=== PATIENT | female | born 1950 | race Caucasian/White ===

== ENCOUNTER → 2017-04-18 | Outpatient (CLI) | payer MEDICARE, BC ==
[2017-04-18 19:17] LABS: Basophils % (A) 1 %; CH 29.3; Eosinophils # (A) 0.1 k/uL (0-0.7); Eosinophils % (A) 3 %; HCT 38.6 % (34.0-46.0); HDW 2.41; HGB 12.6 gm/dL (11.4-16.0); Luc # (Auto) 0.05; Luc % (Auto) 2; Lymphocytes # (A) 1.3 k/uL (1.0-4.8); Lymphocytes % (A) 40 %; MCH 29.2 pg (25.0-35.0); MCHC 32.7 g/dL (31.0-37.0); MCV 89.3 fL (80.0-100.0); Mean Platelet Volume 7.1; Monocytes # (A) 0.2 k/uL (0-1.0); Monocytes % (A) 6 %; Neutrophils # (A) 1.5 k/uL (1.3-7.7); Neutrophils % (A) 49 %; RBC 4.32 m/uL (3.80-5.40); RDW 13.7 % (11.5-15.5); WBC 3.2 k/uL (3.8-10.6); WBC (Perox) 3.19
[2017-04-18 19:28] LABS: ALT 27 U/L (9-52); AST 32 U/L (14-36); Alkaline Phosphatase 45 U/L (38-126); Anion Gap 11 mmol/L; Blood Urea Nitrogen 17 mg/dL (7-17); Calcium 9.3 mg/dL (8.4-10.2); Carbon Dioxide 23 mmol/L (22-30); Chloride 108 mmol/L (98-107); Cholesterol 207 mg/dL (<200); Glucose 88 mg/dL (74-99); HDL Cholesterol 97 mg/dL (40-60); Non-African American GFR(MDRD) >60 (>60 ml/min/1.73 sqM); Potassium 4.5 mmol/L (3.5-5.1); Sodium 142 mmol/L (137-145); Total Bilirubin 0.4 mg/dL (0.2-1.3); Total Protein 6.7 g/dL (6.3-8.2); Triglycerides 106 mg/dL (<150)
== END | disposition home or self-care (01) ==
LOC: MMGSC 11:55
PROVIDERS: ATTEND Family Medicine
DX: D72.819 Decreased white blood cell count, unspecified (principal); R74.0 Nonspecific elevation of levels of transaminase and lactic acid dehydrogenase [LDH]
CPT/HCPCS: 36415; 80053; 80061; 84439; 84443; 85025; 99213

== ENCOUNTER 2018-09-11 21:40 | Emergency (ER) | payer MEDICARE, BC ==
[2018-09-11 21:53] VITALS: BP 148/82; PULSE 76; RESP 16; TEMP 97.9
[2018-09-11] MEDS ORDERED: HYDROcodone/APAP 5-325MG 1 EACH TAB PO STA (22:58)
--- NOTE | 2018-09-11 23:25 | XR ---
EXAMINATION TYPE: XR knee complete RT DATE OF EXAM: 09/11/2018 COMPARISON: NONE HISTORY: Fall. Pain. TECHNIQUE: 3 views FINDINGS: There is knee joint effusion. There is nondisplaced comminuted fracture of the patella. The re is no dislocation. Joint spaces are fairly normal. Femur and tibia and fibula appear intact. IMPRESSION: Comminuted patella fracture with knee joint effusion.
--- NOTE | 2018-09-11 23:43 | ED ---
Lower Extremity Injury HPI - General Source: patient, family Mode of arrival: wheelchair Limitations: no limitations <Kelsey Morris - Last Filed: 09/12/18 04:48> <Val Harvey - Last Filed: 09/12/18 06:23> - General Chief Complaint: Extremity Injury, Lower Stated Complaint: fall, rt knee pain Time Seen by Provider: 09/11/18 22:08 - History of Present Illness Initial Comments: 68-year-old female patient presents to the emergency department today for complaints of right knee pain. The patient states that around 6 PM she was going into the garage carrying something when she tripped and fell forward landing on her knees. Patient states that she is also having some mild low back pain and some pain to the left knee but the right knee is the most severe. Patient states she is unable to bear weight on the right leg. States that she has pain and swelling surrounding the knee. She does report painful range of motion but with denies any limitation. She denies any numbness or tingling to the leg. She denies hitting her head or losing consciousness with the fall. She denies any pain radiation from her back down her legs. Denies any saddle anesthesia or loss of bowel or bladder control. Denies striking her back on anything during the fall. States she did take Tylenol and Motrin shortly after the fall occurred. Patient denies any headache, neck pain, chest pain, shortness of breath, dizziness, weakness, abdominal pain, nausea, vomiting, or difficulties with bowel movements or urination. (Kelsey Morris) - Related Data Previous Rx's Medication Instructions Recorded Hydrocodone/Acetaminophen [[place] 1 tab PO Q6HR PRN #12 tab 09/11/18 5-325] Allergies Allergy/AdvReac Type Severity Reaction Status Date / Time No Known Allergies Allergy Verified 09/11/18 23:40 Review of Systems ROS Other: All systems not noted in ROS Statement are negative. <Kelsey Morris - Last Filed: 09/12/18 04:48> ROS Other: All systems not noted in ROS Statement are negative. <Val Harvey - Last Filed: 09/12/18 06:23> ROS Statement: Those systems with pertinent positive or pertinent negative responses have been documented in the HPI. Past Medical History Past Medical History: No Reported History History of Any Multi-Drug Resistant Organisms: None Reported Past Surgical History: Orthopedic Surgery Additional Past Surgical History / Comment(s): colon surgery Smoking Status: Never smoker Past Alcohol Use History: Unable to Obtain Past Drug Use History: None Reported <NohemyleticiaKelsey - Last Filed: 09/12/18 04:48> General Exam Limitations: no limitations General appearance: alert, in no apparent distress, other (This is a well- developed, well-nourished adult female patient in no acute distress. Vital signs upon presentation are temperature 97.9F, pulse 76, respirations 16, blood pressure 148/82, pulse ox 99% on room air.) Eye exam: Present: normal appearance, PERRL, EOMI. Absent: scleral icterus, conjunctival injection, periorbital swelling ENT exam: Present: normal exam, normal oropharynx, mucous membranes moist Neck exam: Present: normal inspection, full ROM, other (Nontender, no step-off, no deformity to firm midline palpation of the posterior cervical spine. Full range of motion without pain or limitation.). Absent: tenderness, meningismus, lymphadenopathy Respiratory exam: Present: normal lung sounds bilaterally. Absent: respiratory distress, wheezes, rales, rhonchi, stridor Cardiovascular Exam: Present: regular rate, normal rhythm, normal heart sounds. Absent: systolic murmur, diastolic murmur, rubs, gallop, clicks GI/Abdominal exam: Present: soft, normal bowel sounds. Absent: distended, tenderness, guarding, rebound, rigid Extremities exam: Present: full ROM (Patient has full range of motion to the right knee with full extension and flexion. Full range of motion to the left knee with full flexion and extension.), tenderness (Tenderness over the anterior aspect of the right knee), normal capillary refill, other (Patient has swelling surrounding the right knee. Ecchymosis over the anterior knee bilaterally. Skin is otherwise pink, warm, and dry. Cap refills less than 3 seconds. Pedal pulses 2+ and equal bilaterally.). Absent: normal inspection, pedal edema, calf tenderness Back exam: Present: normal inspection, other. Absent: vertebral tenderness Neurological exam: Present: alert, oriented X3, CN II-XII intact Psychiatric exam: Present: normal affect, normal mood Skin exam: Present: warm, dry, intact, normal color. Absent: rash <Bantle,Kelsey M - Last Filed: 09/12/18 04:48> Vital Signs 09/11/18 21:48 Temperature 97.9 F Pulse Rate 76 Respiratory 16 Rate Blood Pressure 148/82 O2 Sat by Pulse 99 Oximetry Medical Decision Making - Radiology Data Radiology results: report reviewed, image reviewed <Kelsey Morris - Last Filed: 09/12/18 04:48> <Val Harvey - Last Filed: 09/12/18 06:23> - Medical Decision Making 68-year-old female patient presents to emergency department today with chief complaint of right knee pain and discomfort. Patient also complaining of some mild left knee discomfort and lower back pain. Physical examination did reveal swelling and tenderness to the right anterior knee. Patient also had some mild ecchymosis in swelling to the left knee. Patient able to bear weight on the left knee, states she does not feel that it is broken. Patient states that she twisted her back during the fall. Denies striking her back on anything for did not perform x-rays of this. X-ray of the right knee did reveal comminuted patellar fracture. Knee joint effusion. Patient is neurovascularly intact. She is placed in a knee immobilizer. Given prescription for crutches. She is instructed to remain nonweightbearing until further direction by orthopedic physician. She is instructed to follow-up with orthopedics for recheck as soon as possible. She'll be given prescription for pain management. She is instructed to rest, ice, elevate the knee. Return parameters discussed in detail. She verbalizes understanding and agrees with this plan. (Kelsey Morris) I was available for consultation in the emergency department. The history and physical exam were done by the midlevel provider. I was consulted for this patient's care. I reviewed the case with the midlevel provider and based on their presentation of the patient, I agree with the assessment, medical decision making and plan of care as documented. (Val Harvey) - Radiology Data 3 views of the right knee are obtained. There is knee joint effusion. There is nondisplaced comminuted fracture of the patella. There is no dislocation. Joint spaces are fairly normal. Femur and tibia and fibula appear intact. Impression by Dr. Arevalo shows comminuted patellar fracture with a joint effusion. (Kelsey Morris) Disposition Is patient prescribed a controlled substance at d/c from ED?: Yes When asked, does pt state using other controlled substances?: No If prescribed controlled substance>3 days was MAPS reviewed?: Prescribed <3 Days If opioid is for acute pain is fill amount 7 days or less?: Yes If Rx opioid, was Start Talking consent form obtained?: Yes Time of Disposition: 23:42 <Kelsey Morris - Last Filed: 09/12/18 04:48> <Val Harvey - Last Filed: 09/12/18 06:23> Clinical Impression: Comminuted fracture of right patella Disposition: HOME SELF-CARE Condition: Good Instructions: Patellar Fracture (ED) Additional Instructions: Leave knee immobilizer in place until follow-up with the land acquisition specialist. He may open to apply ice to the knee. Use crutches. Follow-up with orthopedic for recheck as soon as possible. Return here immediately for any new , worsening, or concerning symptoms Prescriptions: Hydrocodone/Acetaminophen [[place] 5-325] 1 tab PO Q6HR PRN #12 tab PRN Reason: Pain Referrals: Ashley Estrada MD [Primary Care Provider] - 1-2 days Riley Cali MD [Medical Doctor] - 1-2 days
== END 2018-09-12 00:03 | disposition home or self-care (01) ==
LOC: EC 21:40
DX: S82.044A Nondisplaced comminuted fracture of right patella, initial encounter for closed fracture (principal); S80.02XA Contusion of left knee, initial encounter; M54.5 Low back pain; W01.0XXA Fall on same level from slipping, tripping and stumbling without subsequent striking against object, initial encounter; Y93.89 Activity, other specified; Y92.59 Other trade areas as the place of occurrence of the external cause
CPT/HCPCS: 99283

== ENCOUNTER → 2021-10-17 | Outpatient (CLI) | payer MEDICARE, BC ==
[~2021-10-17] MED LIST: DENOSUMAB 60 MG/ML 1 ML SYRINGE SQ NR
[2021-10-17 11:25] VITALS: BP 154/84; PULSE 74; RESP 16; TEMP 98
== END ==
LOC: PROCWHC3 10:36
PROVIDERS: ATTEND Internal Medicine Endocrinology, Diabetes & Metabolism
DX: M81.0 Age-related osteoporosis without current pathological fracture (principal)
CPT/HCPCS: 96372; J0897

== ENCOUNTER → 2021-12-06 | Outpatient (CLI) | payer MEDICARE, BC ==
--- NOTE | 2021-12-10 10:53 | MM ---
Reason for exam: screening (asymptomatic). Last mammogram was performed 6 years and 11 months ago. History: Patient is postmenopausal. Physical Findings: A clinical breast exam by your physician is recommended on an annual basis and results should be correlated with mammographic findings. MG 3D Screening Mammo W/Cad Bilateral CC and MLO view(s) were taken. Prior study comparison: January 18, 2015, left breast MG work up mamm w CAD LT. January 12, 2015, bilateral MG screening mammo w CAD. There are scattered fibroglandular densities. Finding #1: There is a 8 mm obscured round mass located 4 cm from the nipple in the outer quadrant, anterior middle position of the right breast. Finding #2: There are typically benign vascular calcifications in both breasts. ASSESSMENT: Incomplete: need additional imaging evaluation, BI-RAD 0 RECOMMENDATION: Ultrasound of the right breast. [facility] will attempt to contact patient to return for ultrasound.
== END | disposition home or self-care (01) ==
LOC: RADMAMWWP 11:37
PROVIDERS: ATTEND Family Medicine
DX: Z12.31 Encounter for screening mammogram for malignant neoplasm of breast (principal); Z78.0 Asymptomatic menopausal state
CPT/HCPCS: 77063; 77067

== ENCOUNTER → 2021-12-18 | Outpatient (CLI) | payer MEDICARE, BC ==
--- NOTE | 2021-12-18 14:24 | USB ---
Reason for exam: additional evaluation requested from abnormal screening. History: Patient is postmenopausal. Physical Findings: Nurse did not find any significant physical abnormalities on exam. US Breast Workup Limited RT Right limited breast ultrasound including focal area of concern, retroareolar and axilla demonstrates a 0.7 x 0.5 x 0.6cm benign cyst at 9 o'clock, likely mammographic correlate. 6 month follow up recommended. Scanned 7-11 o'clock. These results were verbally communicated with the patient and result sheet given to the patient on 12/18/21. ASSESSMENT: Probably benign, BI-RAD 3 RECOMMENDATION: Follow-up diagnostic mammogram of the right breast in 6 months.
== END | disposition home or self-care (01) ==
LOC: RADUSWWP 13:13
PROVIDERS: ATTEND Family Medicine
DX: R92.8 Other abnormal and inconclusive findings on diagnostic imaging of breast (principal); Z78.0 Asymptomatic menopausal state

== ENCOUNTER → 2022-05-06 | Outpatient (CLI) | payer MEDICARE, BC ==
[2022-05-06 11:22] VITALS: BP 159/77; PULSE 72; RESP 16; TEMP 97.5
== END ==
LOC: PROCWHC3 11:13
PROVIDERS: ATTEND Internal Medicine Endocrinology, Diabetes & Metabolism
DX: M81.0 Age-related osteoporosis without current pathological fracture (principal)
CPT/HCPCS: 96372; J0897

== ENCOUNTER → 2022-06-18 | Outpatient (CLI) | payer MEDICARE, BC ==
--- NOTE | 2022-06-18 13:28 | MM ---
Reason for Exam: Follow-up at short interval from prior study. Last screening mammogram was performed 6 month(s) ago. Patient History: Menarche at age 11. First Full-Term at age 20. Postmenopausal. Risk Values: Claudia 5 year model risk: 1.6%. NCI Lifetime model risk: 3.9%. Prior Study Comparison: 01/12/2015 Bilateral Screening Mammogram, [facility]. 01/18/2015 Left Diagnostic Mammogram, [facility]. 12/06/2021 Bilateral Screening Mammogram, [facility]. Tissue Density: Right: The breast tissue is heterogeneously dense. This may lower the sensitivity of mammography. Findings: Analyzed By CAD. Stable chronic nodularity and benign calcifications on the right. Findings are stable. Overall Assessment: Benign, BI-RAD 2 Management: Screening Mammogram of both breasts in 6 months. A clinical breast exam by your physician is recommended on an annual basis and results should be correlated with mammographic findings. This exam should not preclude additional follow-up of suspicious palpable abnormalities. Results were given to the patient verbally at the time of exam. Electronically signed and approved by: Eldon Choudhury M.D. Radiologis
== END | disposition home or self-care (01) ==
LOC: RADMAMWWP 12:55
PROVIDERS: ATTEND Obstetrics & Gynecology
DX: R92.8 Other abnormal and inconclusive findings on diagnostic imaging of breast (principal); R92.1 Mammographic calcification found on diagnostic imaging of breast; Z78.0 Asymptomatic menopausal state
CPT/HCPCS: 77065; G0279; 77061

== ENCOUNTER → 2023-09-19 | Outpatient (CLI) | payer MEDICARE, BC ==
--- NOTE | 2023-09-19 12:52 | BD ---
EXAMINATION TYPE: Axial Bone Density DATE OF EXAM: 09/19/2023 CLINICAL HISTORY: 73 years old Female. ICD-10 CODE: M81.0 AGE RELATED OSTEOPOROSIS Height: 5 ft 2 1/2 in Weight: 150 FRAX RISK QUESTIONS: Alcohol (3 or more units per day): no Family History (Parent hip fracture): no Glucocorticoids (More than 3mos): no (Ex: prednisone, prednisolone, methylprednisolone, dexamethasone, and hydrocortisone). History of Fracture in Adulthood: yes Secondary Osteoporosis: 1. Type 1 Diabetes: no 2. Hyperthyroidism: no 3. Menopause before 45: yes 4. Malnutrition: no 5. Chronic liver disease: no Rheumatoid Arthritis: no Current Tobacco Use: no RISK FACTORS HISTORY OF: Surgery to Spine/Hip(right/left)/Wrist (right/left): no Family History of Osteoporosis: no Active: yes Diet low in dairy products/other sources of calcium: no Postmenopausal woman: yes Take estrogen and/or progesterone medications: no Lost more than 2 inches in height since high school: no Frequent falls: no Poor Health: good Hyperparathyroidism: no Adrenal Insufficiency: no MEDICATIONS: Thyroid Medications: yes Which medication: synthroid How Lon year Additional Medications: prolia x 7 years synthroid Additional History: EXAM MEASUREMENTS: Bone mineral densitometry was performed using the TrueView System. Bone mineral density as measured about the Lumbar spine is: ----- L1-L4(G/cm2): 1.189 T Score Values are as follows: ----- L1: -0.7 ----- L2: -0.1 ----- L3: 0.1 ----- L4: 0.8 ----- L1-L4: 0.1 Z Score Values are as follows: ----- L1: 0.9 ----- L2: 1.6 ----- L3: 1.7 ----- L4: 2.4 ----- L1-L4: 1.7 Bone mineral density has: increased 21.6 % since study of: 2014 Bone mineral density about the R hip (g/cm2): 0.611 Bone mineral density about the L hip (g/cm2): 0.659 T Score values are as follows: -----R Neck: -3.1 -----L Neck: -2.7 -----R Total: -2.5 -----L Total: -2.0 Z Score values are as follows: -----R Neck: -1.3 -----L Neck: -0.9 -----R Total: -0.9 -----L Total: -0.4 Bone mineral density has: increased 9.9 % since study of: 2014 FRAX%s: The graph provided illustrates a 21.8 % chance for a major osteoporotic fx and a 8.5 % chance for the hips probability for fx in 10 years time. IMPRESSION: Osteoporosis (T Score less than -2.5). There is increased fracture risk and therapy is usually indicated based on age. Re-Screen 1-2 years. NOTE: T-SCORE=SD OF THE YOUNG ADULT MEAN.
== END | disposition home or self-care (01) ==
LOC: RADBDWWP 12:03
PROVIDERS: ATTEND Internal Medicine Endocrinology, Diabetes & Metabolism
DX: M81.0 Age-related osteoporosis without current pathological fracture (principal); Z78.0 Asymptomatic menopausal state
CPT/HCPCS: 77080

== ENCOUNTER → 2023-11-05 | Outpatient (CLI) | payer MEDICARE, BC ==
[2023-11-05 12:01] LABS: African American GFR (CKD) >90 (>60 ml/min/1.73 sqM); Blood Urea Nitrogen 13 mg/dL (7-17); Non-African American GFR(CKD) 84 (>60 ml/min/1.73 sqM)
--- NOTE | 2023-11-05 13:38 | CT ---
EXAMINATION TYPE: CT abdomen pelvis w con DATE OF EXAM: 11/05/2023 COMPARISON: 10/15/2010 HISTORY: right sided abdominal pain CT DLP: 482.5 mGycm CONTRAST: CT scan of the abdomen and pelvis is performed with Oral Contrast and with IV Contrast, patient injec willy with 100 mL of Isovue 300. FINDINGS: LUNG BASES-: No visible nodule. No infiltrate. Small hiatal hernia. LIVER/GB: The gallbladder is surgically absent. Mild hepatic steatosis. No space occupying hepatic lesion. Biliary tree is of normal caliber. PANCREAS: No inflammation. No distinct mass. SPLEEN: No splenic enlargement. No lesion seen. ADRENALS: No nodule. No thickening. KIDNEYS/BLADDER: No hydronephrosis. No nephrolithiasis. No distinct renal mass. Urinary bladder g rossly unremarkable. BOWEL: Normal appendix. Normal bowel caliber. No inflammation. Scattered colonic diverticulosis wit hout diverticulitis. GENITAL ORGANS: No gross abnormality. LYMPH NODES: No greater than 1cm abdominal or pelvic lymph nodes are appreciated. AORTA: No significant abnormality. OSSEOUS STRUCTURES: No significant abnormality is seen. OTHER: No significant additional abnormality is seen. IMPRESSION: 1. No significant abnormality to account for the patient's symptoms.
== END | disposition home or self-care (01) ==
LOC: RADCTMAIN 10:47
PROVIDERS: ATTEND Family Medicine
DX: R10.11 Right upper quadrant pain (principal)
CPT/HCPCS: 82565; 84520; 74177; 36415; Q9967

== ENCOUNTER → 2024-02-25 | Outpatient (CLI) | payer MEDICARE, BC ==
--- NOTE | 2024-02-26 14:15 | MM ---
Reason for Exam: Screening (asymptomatic). Last mammogram was performed 1 year(s) and 1 month(s) ago. Patient History: Menarche at age 11. First Full-Term at age 20. Postmenopausal. Risk Values: Claudia 5 year model risk: 1.6%. NCI Lifetime model risk: 3.7%. Prior Study Comparison: 12/06/2021 Bilateral Screening Mammogram, [facility]. 06/18/2022 Right MG 3D diag mammo w/cad RT, [facility]. 01/31/2023 Bilateral MG 3D screening mammo w/cad, [facility]. Tissue Density: There are scattered areas of fibroglandular density. Findings: Analyzed By CAD. Right breast: There is no suspicious group of microcalcifications or new suspicious mass. Left breast: There is no suspicious group of microcalcifications or new suspicious mass. Overall Assessment: Negative, BI-RAD 1 Management: Screening Mammogram of both breasts in [address] [facility] will attempt to contact patient to return for supplemental views and ultrasound if indicated. Patient should continue monthly self-breast exams. A clinical breast exam by your physician is recommended on an annual basis. This exam should not preclude additional follow-up of suspicious palpable abnormalities. Note on Claudia scores and lifetime risk: 1. A Claudia score greater than 3% is considered moderate risk. If this is the case, consider specialist referral to assess eligibility for a risk reducing agent. 2. If overall lifetime risk for the development of breast cancer is 20% or higher, the patient may qualify for future screening with alternating mammogram and breast MRI. Electronically signed and approved by: Charanjit Villanueva DO
== END | disposition home or self-care (01) ==
LOC: RADMAMWWP 13:10
PROVIDERS: ATTEND Family Medicine
DX: Z12.31 Encounter for screening mammogram for malignant neoplasm of breast (principal); Z78.0 Asymptomatic menopausal state
CPT/HCPCS: 77063; 77067

== ENCOUNTER → 2024-03-01 | Outpatient (CLI) | payer MEDICARE, BC ==
--- NOTE | 2024-03-01 13:28 | FL ---
EXAMINATION TYPE: FL UGI air w small bowel DATE OF EXAM: 03/01/2024 COMPARISON: NONE HISTORY: Right upper quadrant pain TECHNIQUE: A double contrast UGI study is performed with small bowel follow through. A total of 2 m inutes and 16 seconds of fluoroscopic time was utilized during procedure and 30 images obtained. Tot al dose area product (DAP) in uGy*m?, mGy*cm? (or similar): Not provided. FINDINGS: Customer Servicer image of the abdomen shows no gross abnormality. Postsurgical changes are seen. Dege nerative changes of the spine. The esophagus shows normal motility and emptying into the stomach. There is a small hiatal hernia and severe gastroesophageal reflux to the level of the distal cervical esophagus. Mild mucosal thickenin g at the level the GE junction could represent reflux esophagitis. Recommend EGD for further evaluati on to exclude mucosal lesion. No definite discrete mass seen. The stomach shows normal distensibility, peristalsis, and mucosal folds. No evidence of any mass or ulcer disease. The duodenal bulb and sweep are unremarkable. The small bowel study shows was delayed transit to the colon with findings compatible with the patien t's history of partial colectomy noted and transit time at 3.5 hours. There is normal mucosal fold p attern throughout the small bowel. There is no evidence of any stricture or filling defect noted. Th ere is mild bowel dilation of the distal small bowel extending to the anastomotic site. IMPRESSION: 1. Small hiatal hernia with severe gastroesophageal reflux. Mild thickening of the distal wall esopha chelsey may be secondary to reflux esophagitis. Consider follow-up EGD. 2. There is delay in transit time to the anastomotic site of the colon at 3.5 hours. There is mild sm all bowel dilation.. Mild area of anastomotic narrowing is in the differential diagnosis with partial obstructive pattern.
== END | disposition home or self-care (01) ==
LOC: RADFLMAIN 07:40
PROVIDERS: ATTEND Surgery
DX: K21.9 Gastro-esophageal reflux disease without esophagitis (principal); K44.9 Diaphragmatic hernia without obstruction or gangrene
CPT/HCPCS: 74240; 74248

== ENCOUNTER 2024-03-23 07:50 | Day surgery (SDC) | payer MEDICARE, BC ==
[2024-03-19 10:26] VITALS: BMI 27.1
[2024-03-23] MEDS: LACTATED RINGERS 1,000 ML IV SCH (08:16)
[2024-03-23] MEDS ORDERED: PROPOFOL 10 MG/ML 20 ML VIAL IV ONE (08:35)
[2024-03-23] MEDS ORDERED: LIDOCAINE 2% (PF) 20 MG/ML 5 ML VIAL ONE (08:35)
--- NOTE | 2024-03-23 08:41 | P.HPADDEND ---
H&P Addendum H&P Addendum Date: 03/23/24 Patient here today for upper and lower endoscopy. Recent upper GI small bowel series shows hiatal hernia and possible anastomotic stricture.
[2024-03-23 08:47] VITALS: TEMP 97.8
--- NOTE | 2024-03-23 09:30 | P.PCN ---
Date of Procedure: 03/23/24 Procedure(s) Performed: PREOPERATIVE DIAGNOSIS: GERD, change in bowel habits, abdominal pain POSTOPERATIVE DIAGNOSIS: Gastritis, hiatal hernia, distal esophagitis, rectal polyp, diverticulosis PROCEDURE: 1. EGD with biopsy 2. Colonoscopy with biopsy [place]ESTH[place]: [facility] [place] SURGEON: Guevara Reed M.D. SPECIMENS: Antrum, distal esophagus, rectal polyp ENDOSCOPIC PROCEDURE: The patient was on the endoscopy table in the left decubitus position. The Olympus gastroscope was inserted into the oropharynx and passed under direct visualization to the region of the third portion of the duodenum. From that point the scope was slowly withdrawn inspecting all surfaces carefully. There were no neoplastic inflammatory or polypoid lesions throughout the duodenum. The pylorus was widely patent. The stomach was carefully inspected. There was mild gastritis present. A biopsy of the antrum took place to rule out H. pylori. Retroflexion revealed a moderate-sized hiatal hernia. The patient had 2-3's linear erosions measuring 1.5 to 2 cm in length. These were noncircumferential. Biopsies were taken. The remainder the esophagus appeared normal. The patient was kept on the endoscopy table in the left decubitus position. The Olympus colonoscope was inserted into the anus and passed under direct vis ualization to the ileocolonic anastomosis. The anastomosis was widely patent. Despite the recent upper GI I was able to advance the scope into the terminal ileum and evaluate the distal ileum without difficulties. I would estimate the anastomotic diameter to be 15 mm or greater. The transverse descending and sigmoid colon appeared normal. In the rectum a small polyp was seen and removed using the cold biopsy forceps. The patient had moderate left-sided diverticulosis. Digital rectal examination was normal. The patient was taken to the recovery room in stable condition per anesthesia guidelines. RECOMMENDATIONS: Await biopsy results. Begin antiacid therapy.
[2024-03-23 09:34] VITALS: BP 121/74; PULSE 75; RESP 14
== END 2024-03-23 09:36 | disposition home or self-care (01) ==
LOC: ORWHC2ENDO 07:50
PROVIDERS: ATTEND Surgery
DX: K29.50 Unspecified chronic gastritis without bleeding (principal); K44.9 Diaphragmatic hernia without obstruction or gangrene; K21.00 Gastro-esophageal reflux disease with esophagitis, without bleeding; K62.1 Rectal polyp; I10 Essential (primary) hypertension; E07.9 Disorder of thyroid, unspecified; Z98.890 Other specified postprocedural states; Z91.040 Latex allergy status; Z79.899 Other long term (current) drug therapy
CPT/HCPCS: 88305; 45380; 43239; J2704; J2001

== ENCOUNTER → 2024-12-03 | Outpatient (CLI) | payer MEDICARE, BC ==
--- NOTE | 2024-12-03 13:37 | MM ---
Reason for Exam: Clinical finding. Last screening mammogram was performed 9 month(s) ago. Indicated Problems: Pain of both sides for 1 Month(s). Patient History: Menarche at age 11. First Full-Term at age 20. Postmenopausal. Risk Values: Claudia 5 year model risk: 1.6%. NCI Lifetime model risk: 3.4%. Prior Study Comparison: 12/06/2021 Bilateral Screening Mammogram, [facility]. 12/18/2021 Right Diagnostic Ultrasound, [facility]. 06/18/2022 Right MG 3D diag mammo w/cad RT, [facility]. 01/31/2023 Bilateral MG 3D screening mammo w/cad, [facility]. 02/25/2024 Bilateral MG 3D screening mammo w/cad, [facility]. Tissue Density: There are scattered areas of fibroglandular density. Findings: Analyzed By CAD. No new suspicious masses, calcifications or distortions. Benign-appearing calcifications. Fibroglandular tissue is similar to multiple priors including right CC lateral focal asymmetry. No finding to correlate patient's pain. Overall Assessment: Benign, BI-RAD 2 Management: Screening Mammogram of both breasts in 1 year. Results were given to the patient verbally at the time of exam. Patient should continue monthly self-breast exams. A clinical breast exam by your physician is recommended on an annual basis. This exam should not preclude additional follow-up of suspicious palpable abnormalities. Note on Claudia scores and lifetime risk: 1. A Claudia score greater than 3% is considered moderate risk. If this is the case, consider specialist referral to assess eligibility for a risk reducing agent. 2. If overall lifetime risk for the development of breast cancer is 20% or higher, the patient may qualify for future screening with alternating mammogram and breast MRI. [facility], , 12/03/2024 1:34 PM. Electronically signed and approved by: Charanjit Villanueva DO
== END | disposition home or self-care (01) ==
LOC: RADMAMWWP 13:01
PROVIDERS: ATTEND Family Medicine
DX: N64.4 Mastodynia (principal); Z78.0 Asymptomatic menopausal state; R92.323 Mammographic fibroglandular density, bilateral breasts
CPT/HCPCS: 77066; G0279; 77062